=== PATIENT | male | born 1940 | race Caucasian/White ===

== ENCOUNTER 2022-05-22 10:39 | Outpatient (CLI) | payer MEDICARE, OTHER | END 2022-05-22 10:40 | disposition home or self-care (01) | LOC: BICCT 10:39 | PROVIDERS: ATTEND Psychiatry & Neurology Neurology | DX: R41.3 Other amnesia (principal) | CPT/HCPCS: 70450 ==

== ENCOUNTER 2023-11-26 09:30 | Outpatient (CLI) | payer MEDICARE, OTHER | END 2023-11-26 09:31 | disposition home or self-care (01) | LOC: PET 09:30 | PROVIDERS: ATTEND Psychiatry & Neurology Neurology | DX: F03.90 Unspecified dementia, unspecified severity, without behavioral disturbance, psychotic disturbance, mood disturbance, and anxiety (principal) | CPT/HCPCS: 78803; A9552 ==